=== PATIENT | male | born 1930 | race Caucasian/White ===

== ENCOUNTER 2017-02-08 10:15 | Observation (INO) | payer OTHER, MEDICARE ==
[~2017-02-08] VITALS: Ht 172.7 cm; Wt 117.8 kg
[~2017-02-08 10:15] MED LIST: ADULT LOW DOSE81 M1 PO; ASCORBIC ACID500 M3 PO; ASPIR-LOW81 MG PO; ATENOLOL50 MG PO; ATORVASTATIN CA20 MG PO; Augmentin PO; ECONAZOLE NITRA15 GM TP; FISH OIL 1,0001 EAC7 PO; HYDROCHLOROTHIA25 MG PO; SYNTHROID112 MCG PO; TAMSULOSIN HCL0.4 MG PO; TENORMIN50 MG PO; VITAMIN E200 UNI5
[2017-02-08 11:45] LABS: MCH 30.2 PG (29.0-34.0); MCHC 33.1 G/DL (30.0-36.0); MCV 91.3 FL (86-99); PLATELET COUNT 179 K/uL (156-360); RBC DIS.WIDTH-SD 50.1 % (39-53); WHITE BLOOD COUNT 9.7 K/uL (4.1-10.2)
[2017-02-08 11:55] LABS: CHLORIDE 101 mEq/L (99-109); POTASSIUM 4.1 mEq/L (3.7-5.4); SODIUM 139 mEq/L (136-147)
[2017-02-08 11:57] LABS: GLUCOSE 109 mg/dL (70-99)
[2017-02-08 11:58] LABS: ANION GAP 10 MEQ/L (2-14)
[2017-02-08 11:59] LABS: TOTAL BILIRUBIN 1.4 mg/dL (0.0-1.0)
[2017-02-08 12:01] LABS: ALKALINE PHOSPHATASE 102 IU/L (3-129); GFR ESTIMATE (CALCULATED) > 59 mL/min/
[2017-02-08 12:02] LABS: UREA NITROGEN (BUN) 21 mg/dL (9-23)
[2017-02-08 12:05] LABS: TROP-I INTERPRETATION NEGATIVE; TROPONIN-I 0.02 ng/mL (0.0-0.30)
[2017-02-08 13:14] LABS: ADD MIUA? NO; BILIRUBIN NEGATIVE; BLOOD NEGATIVE; COLOR YELLOW ((YELLOW)); GLUCOSE (STRIP) NEGATIVE; KETONES NEGATIVE; LEUKOCYTES NEGATIVE; NITRITE NEGATIVE; PROTEIN (STRIP) NEGATIVE; SPECIFIC GRAVITY 1.009 (1.000-1.030); UROBILINOGEN 0.2 MG/DL (0.2-1.0)
[2017-02-08] MEDS ORDERED: GLIPIZIDE ER2.5 MG PO (14:45)
[2017-02-08] MEDS ORDERED: ERGOCALCIF50000 UNIT PO (14:48)
[2017-02-08] MEDS ORDERED: ALLOPURINOL300 MG PO (14:48)
[2017-02-08] MEDS ORDERED: PRESERVISION T1 EACH PO (14:49)
[2017-02-08] MEDS ORDERED: VENTOLIN HFA18 GM IH (14:49)
[2017-02-08] MEDS ORDERED: FLONASE16 G1 BOTH NARES (14:49)
[2017-02-08] MEDS ORDERED: VITAMIN E400 UNIT PO (14:50)
[2017-02-08] MEDS ORDERED: CYANOCOBALAM1000 MCG PO (14:50)
[2017-02-08 17:05] VITALS: BP 177/81
[2017-02-08 18:18] LABS: POINT-OF-CARE METER ID UU14162513
[2017-02-08 18:29] LABS: TROP-I INTERPRETATION NEGATIVE; TROPONIN-I 0.02 ng/mL (0.0-0.30)
[2017-02-08 20:32] VITALS: BP 136/67
[2017-02-08 21:19] LABS: POINT-OF-CARE METER ID UU14162513
[2017-02-09 00:58] VITALS: BP 144/74
[2017-02-09 01:43] LABS: TROP-I INTERPRETATION NEGATIVE; TROPONIN-I 0.04 ng/mL (0.0-0.30)
[2017-02-09 04:15] VITALS: BP 169/77
[2017-02-09 07:49] LABS: POINT-OF-CARE METER ID UU13113700
[2017-02-09 08:43] VITALS: BP 106/72
[2017-02-09 11:06] VITALS: BP 117/60
[2017-02-09 12:13] LABS: POINT-OF-CARE METER ID UU13113831
[2017-02-09 15:16] VITALS: BP 128/59
[2017-02-09] MEDS ORDERED: TRAMADOL HCL50 MG PO (15:22)
== END 2017-02-09 17:38 | disposition home or self-care (01) ==
LOC: EME 10:15 → EDOF 13:57 → 5WEST 13:57 → ENRESERV 13:59 → 5WEST 17:01 → ENPENDDIS 02-09 → 5WEST 02-09 17:38
PROVIDERS: Internal Medicine; Nurse Practitioner Family
PROC: 2W3AXYZ Immobilization of Right Upper Arm using Other Device (ICD-10-PCS; principal; 2017-02-08)
DX: R55 Syncope and collapse (principal); I25.10 Atherosclerotic heart disease of native coronary artery without angina pectoris; Z95.5 Presence of coronary angioplasty implant and graft; S43.101A Unspecified dislocation of right acromioclavicular joint, initial encounter; I65.22 Occlusion and stenosis of left carotid artery; E11.9 Type 2 diabetes mellitus without complications; Z79.4 Long term (current) use of insulin; Z87.891 Personal history of nicotine dependence; Z79.82 Long term (current) use of aspirin; Z72.89 Other problems related to lifestyle
CPT/HCPCS: 70450; 71020; 72100; 73030; 80053; 81003; 82948; 84484; 85027; 93005; 93880; 94640; 99202; 99281; 99285; G0378; G8978 GP CH; G8979 GP CH; G8980 GP CH; G8987 GO CH; G8988 GO CH; G8989 GO CH; J1644; J1815

== ENCOUNTER 2017-07-11 12:22 | Day surgery (SDC) | payer OTHER, MEDICARE ==
[~2017-07-11] VITALS: Ht 167.6 cm; Wt 121.6 kg
[~2017-07-11 12:22] MED LIST changes: +ALLOPURINOL300 MG PO; +CYANOCOBALAM1000 MCG PO; +ERGOCALCIF50000 UNIT PO; +FLONASE16 G1 BOTH NARES; +GLIPIZIDE ER2.5 MG PO; +LEVOTHYROXINE125 MCG PO; +METOPROLOL SUCC50 MG PO; +PRESERVISION T1 EACH PO; +TRAMADOL HCL50 MG PO; +VENTOLIN HFA18 GM IH; +VITAMIN E400 UNIT PO
== END 2017-07-11 14:53 | disposition home or self-care (01) ==
LOC: CATH 12:22
PROVIDERS: Internal Medicine Cardiovascular Disease
PROC: 0JH602Z Insertion of Monitoring Device into Chest Subcutaneous Tissue and Fascia, Open Approach (ICD-10-PCS; principal; 2017-07-11)
DX: I47.2 Ventricular tachycardia (principal); R55 Syncope and collapse; I25.10 Atherosclerotic heart disease of native coronary artery without angina pectoris; I08.0 Rheumatic disorders of both mitral and aortic valves; E78.2 Mixed hyperlipidemia; E11.51 Type 2 diabetes mellitus with diabetic peripheral angiopathy without gangrene; Z79.82 Long term (current) use of aspirin; E66.3 Overweight; Z68.41 Body mass index [BMI] 40.0-44.9, adult; Z79.84 Long term (current) use of oral hypoglycemic drugs
CPT/HCPCS: 82948; C1764; C1894; J0690; J1200; J2250; J3010